=== PATIENT | male | born 2000 | race Asian ===

== ENCOUNTER 2022-05-25 22:00 | Emergency (ER) | payer OTHER ==
[~2022-05-25] VITALS: Ht 167.6 cm; Wt 73.0 kg
[2022-05-25 22:02] VITALS: BP 131/81
[2022-05-25] MEDS ORDERED: PENI500T PO (22:11)
[2022-05-26] MEDS ORDERED: BENZ200C70 PO (04:21)
[2022-05-26] MEDS ORDERED: IBUP-1022 PO (04:21)
[2022-05-26] MEDS ORDERED: VENTAER INH (04:26)
== END 2022-05-26 04:49 | disposition home or self-care (01) ==
LOC: M ED 22:00
DX: U07.1 COVID-19 (principal)